=== PATIENT | female | born 1980 | race Caucasian/White ===

== ENCOUNTER → 2017-03-05 | Outpatient (CLI) | payer OTHER ==
[2015-11-26 15:57] VITALS: BP 113/83
--- NOTE | 2017-03-12 16:42 | MG ---
HISTORY: SCREENING Comparison: No priors FINDINGS: Bilateral CC and MLO projections of the right and left breast were obtained. Heterogeneously dense f ibroglandular tissue is seen to be present. No significant architectural distortion, mass or cluster ed microcalcifications can be observed to suggest malignancy. No skin thickening or nipple retractio n is appreciated. No pathological lymphadenopathy can be identified. IMPRESSION: NO RADIOGRAPHIC EVIDENCE OF MALIGNANCY. ACR CATEGORY I - NEGATIVE EXAM. FOLLOW-UP EXAM 1 YEAR. Diagnostic CAD was utilized and reviewed. * 0 (ZERO) - ASSESSMENT INCOMPLETE; ADDITIONAL IMAGING IS NEEDED. * 1/1 (ONE) - NEGATIVE. * 2/II (TWO) - BENIGN FINDINGS. * 3/III (THREE) - PROBABLY BENIGN FINDING; SHORT INTERVAL FOLLOW-UP SUGGESTED. * 4/IV (FOUR) - SUSPICIOUS ABNORMALITY; BIOPSY SHOULD BE CONSIDERED. * 5/V - HIGHLY SUSPICIOUS OF MALIGNANCY; BIOPSY SHOULD BE PERFORMED. A NEGATIVE X-RAY REPORT SHOULD NOT DELAY BIOPSY IF A DOMINANT OR CLINICALLY SUSPICIOUS MASS IS PRESENT; 4 TO 8 PERCENT OF CANCERS ARE NOT IDENTIFIED BY X-RAY. A NEGA TIVE REPORT MAY REINFORCE THE CLINICAL IMPRESSION. ADENOSIS AND DENSE BREASTS MAY OBSCURE AN UNDERLY ING NEOPLASM. Reported By:
== END ==
LOC: RAD 15:41
PROVIDERS: ATTEND Nurse Practitioner Family
DX: Z12.31 Encounter for screening mammogram for malignant neoplasm of breast (principal)
CPT/HCPCS: 77067

== ENCOUNTER 2017-03-22 09:46 | Day surgery (SDC) | payer OTHER ==
[2017-03-22] MEDS ORDERED: D5 LR 1000 ML 1,000 ML IV ONE (09:57)
[2017-03-22] MEDS ORDERED: DIPRIVAN VIAL 20 ML ONE (10:40)
[2017-03-22] MEDS ORDERED: DIPRIVAN VIAL 10 ML ONE (10:52)
[2017-03-22 11:34] VITALS: BP 111/88
== END 2017-03-22 11:30 | disposition home or self-care (01) ==
LOC: SURG1 09:46
PROVIDERS: ATTEND Internal Medicine Gastroenterology
PROC: 0DBE8ZX Excision of Large Intestine, Via Natural or Artificial Opening Endoscopic, Diagnostic (ICD-10-PCS; principal; 2017-03-22 13:45)
PROC: 0DJD8ZZ Inspection of Lower Intestinal Tract, Via Natural or Artificial Opening Endoscopic (ICD-10-PCS; principal; 2017-03-22 13:45)
PROC: 0DBP8ZX Excision of Rectum, Via Natural or Artificial Opening Endoscopic, Diagnostic (ICD-10-PCS; principal; 2017-03-22 13:45)
PROC: 0DBN8ZX Excision of Sigmoid Colon, Via Natural or Artificial Opening Endoscopic, Diagnostic (ICD-10-PCS; principal; 2017-03-22 13:45)
DX: K92.1 Melena (principal); K92.2 Gastrointestinal hemorrhage, unspecified; R10.84 Generalized abdominal pain; R19.4 Change in bowel habit; K63.5 Polyp of colon; K62.1 Rectal polyp; K57.30 Diverticulosis of large intestine without perforation or abscess without bleeding; K64.0 First degree hemorrhoids; D12.5 Benign neoplasm of sigmoid colon
CPT/HCPCS: A4217; J3490; J7120

== ENCOUNTER 2017-03-29 09:43 | Day surgery (SDC) | payer OTHER ==
[2017-03-29] MEDS ORDERED: D5 LR 1000 ML 1,000 ML IV ONE (09:54)
[2017-03-29] MEDS ORDERED: DIPRIVAN VIAL 20 ML ONE (11:41)
[2017-03-29 12:42] VITALS: BP 122/86
== END 2017-03-29 12:15 | disposition home or self-care (01) ==
LOC: SURG1 09:43
PROVIDERS: ATTEND Internal Medicine Gastroenterology
PROC: 0DB88ZX Excision of Small Intestine, Via Natural or Artificial Opening Endoscopic, Diagnostic (ICD-10-PCS; principal; 2017-03-29 15:00)
PROC: 0DB68ZX Excision of Stomach, Via Natural or Artificial Opening Endoscopic, Diagnostic (ICD-10-PCS; principal; 2017-03-29 15:00)
PROC: 0DJ08ZZ Inspection of Upper Intestinal Tract, Via Natural or Artificial Opening Endoscopic (ICD-10-PCS; principal; 2017-03-29 15:00)
DX: R10.13 Epigastric pain (principal); Z87.19 Personal history of other diseases of the digestive system; K21.9 Gastro-esophageal reflux disease without esophagitis; Z79.1 Long term (current) use of non-steroidal anti-inflammatories (NSAID); R11.0 Nausea; K29.60 Other gastritis without bleeding; K20.8 Other esophagitis
CPT/HCPCS: A4217; J3490; J7120

== ENCOUNTER → 2017-05-04 | Outpatient (CLI) | payer OTHER ==
--- NOTE | 2017-05-04 13:17 | NM ---
GASTRIC EMPTYING STUDY HISTORY: 37-year-old female with nausea and abdominal pain with full feeling and constipation. RADIOPHARMACEUTICAL: 0.5 mCi Tc-99m sulfur colloid PO. TECHNIQUE: After eating a meal containing Tc-99m sulfur colloid, dynamic images of the abdomen were a cquired in the anterior and posterior views for 90 minutes. COMPARISON: None. OTHER STUDIES USED FOR CORRELATION: None. FINDINGS: DYNAMIC IMAGES Normal radiotracer activity in the stomach with mildly delayed transit into the small bowel. QUANTITATIVE ANALYSIS The solid half emptying time is greater than 90 minutes. The normal range for the solid half emptying time is 45 to 110 minutes. The solid remaining is 67% and 90 minutes. IMPRESSION: Mildly delayed gastric emptying without evidence of obstruction. Reported By:
== END ==
LOC: RAD 09:02
PROVIDERS: ATTEND Internal Medicine Gastroenterology
DX: K21.0 Gastro-esophageal reflux disease with esophagitis (principal); R10.84 Generalized abdominal pain; R11.0 Nausea
CPT/HCPCS: 78264